=== PATIENT | female | born 2000 ===

== ENCOUNTER → 2022-10-07 | Outpatient (REF) ==
[2022-10-07 13:38] LABS: RSV AMPLIFICATION NEGATIVE (NEGATIVE)
== END ==
LOC: M LABSMTC 11:27
PROVIDERS: ATTEND Family Medicine
DX: Z11.52 Encounter for screening for COVID-19 (principal)

== ENCOUNTER 2023-01-26 00:39 | Emergency (ER) | payer SELFPAY ==
[~2023-01-26] VITALS: Ht 175.3 cm; Wt 66.8 kg
[2023-01-26 00:40] VITALS: BP 132/75
[2023-01-26] MEDS ORDERED: ASPI81TA26 PO (00:50)
[2023-01-26] MEDS ORDERED: LEXA1TAB2 PO (00:50)
[2023-01-26] MEDS ORDERED: PRENTAB9 PO (00:50)
== END 2023-01-26 01:46 | disposition left against medical advice (07) ==
LOC: M ED 00:39
DX: Z53.21 Procedure and treatment not carried out due to patient leaving prior to being seen by health care provider (principal)